=== PATIENT | female | born 2000 | race Caucasian/White ===

== ENCOUNTER 2020-05-24 17:42 | Emergency (ER) | payer MEDICAID ==
[~2020-05-24] VITALS: Ht 152.4 cm; Wt 45.5 kg
[2020-05-24 17:53] VITALS: BP 122/68
[2020-05-24] MEDS ORDERED: DIPHENHYDRAMINE 25MG CAPSULE PO ONE (18:15)
[2020-05-24] MEDS ORDERED: FAMOTIDINE 20MG TABLET PO ONE (18:15)
== END 2020-05-24 18:15 | disposition home or self-care (01) ==
LOC: ER 17:42
DX: S80.862A Insect bite (nonvenomous), left lower leg, initial encounter (principal); S80.861A Insect bite (nonvenomous), right lower leg, initial encounter; W57.XXXA Bitten or stung by nonvenomous insect and other nonvenomous arthropods, initial encounter; Y93.89 Activity, other specified; Y92.018 Other place in single-family (private) house as the place of occurrence of the external cause
CPT/HCPCS: 99283; Q0163

== ENCOUNTER 2022-12-21 12:07 | Emergency (ER) | payer MEDICAID ==
[~2022-12-21] VITALS: Ht 152.4 cm; Wt 54.0 kg
[2022-12-21 15:00] VITALS: BP 119/69
[2022-12-21] MEDS ORDERED: MAGNESIUM/ALUMINUM HYDROXIDE/SIMETHICONE 30ML UDC PO NR (15:15)
[2022-12-21] MEDS ORDERED: ONDANSETRON 4MG ODT PO NR (15:15)
[2022-12-21] MEDS ORDERED: FAMOTIDINE 20MG TABLET PO NR (15:15)
[2022-12-21 15:25] LABS: CHLORIDE 107 mEq/L (98-107)
[2022-12-21 15:29] LABS: BASOPHILS % 1.4 % (0.0-2.0); EOSINOPHILS % 1.5 % (0.0-5.0); HEMATOCRIT. 36.2 % (36.0-48.0); HEMOGLOBIN. 12.1 g/dL (12.0-16.0); LYMPHOCYTES % 33.2 % (20.0-50.0); MEAN CORPUSCULAR HEMOGLOBIN 27.7 pg (28.0-32.0); MEAN PLATELET VOLUME 8.7 fl (7.4-10.4); MONOCYTES % 6.5 % (2.0-8.0); NEUTROPHILS % 57.4 % (40.0-76.0); PLATELET 370 x1000/uL (130-400); RED BLOOD CELL COUNT 4.36 mill/uL (4.2-5.4)
[2022-12-21 15:51] LABS: HCG SCREEN NEGATIVE
== END 2022-12-21 16:51 | disposition home or self-care (01) ==
LOC: ER 12:07
DX: R07.89 Other chest pain (principal)
CPT/HCPCS: 36415; 71045; 80053; 83690; 84484; 84703; 85025; 93005; 99285; Q0162; Z7610